=== PATIENT | female | born 1945 | race Caucasian/White ===

== ENCOUNTER 2021-09-06 15:36 | Emergency (ER) | payer MEDICARE ==
[2021-09-06] MEDS ORDERED: Acetaminophen 500 MG TAB ONE (16:32)
[2021-09-06 16:33] LABS: #Eosinphils 0.1 10x3/uL (0.0-0.5); #Monocytes 0.8 10x3/uL (0.0-1.1); #Neutrophils 3.6 10x3/uL (1.5-8.4); %Basophils 0.7 % (0.0-2.0); %Eosinophils 2.2 % (0.0-6.0); %Lymphocytes 21.9 % (18.0-47.0); %Monocytes 12.9 % (0.0-10.0); %Neutrophils 62.1 % (40.0-75.0); Hemoglobin 12.8 g/dL (12.0-15.5); Mean Corpuscular HGB CONC 33.2 g/dL (32.0-36.0); Mean Corpuscular Hemoglobin 31.1 pg (27.0-33.0); Mean Corpuscular Volume 93.7 fl (81.6-98.3); Mean Platelet Volume 10.8 fl (7.4-10.4); Platelet Count 217 10x3/uL (150-450); RBC Distribution Width 12.5 % (11.5-14.5); Red Blood Cell (RBC) Count 4.12 10x6/uL (3.90-5.03); White Blood Cell (WBC) Count 5.8 10x3/uL (3.5-10.5)
[2021-09-06 16:48] LABS: ALT (SGPT) 26 U/L (8-55); AST (SGOT) 31 U/L (5-34); Albumin 4.3 g/dL (3.4-4.8); Alkaline Phosphatase 38 U/L (40-110); Anion Gap 15 mmol/L (10-20); BUN (Urea Nitrogen) 21 mg/dL (9.8-20.1); Bilirubin, Total 0.6 mg/dL (0.2-1.2); Calc. Creatinine Clearance 0 mL/min (70-130); Calcium 9.4 mg/dL (7.8-10.44); Carbon Dioxide 30 mmol/L (23-31); Chloride 97 mmol/L (98-107); Globulin 3.3 g/dL (2.4-3.5); Glucose 99 mg/dL (83-110); Potassium 3.6 mmol/L (3.5-5.1); Protein, Total 7.6 g/dL (5.8-8.1); Sodium 138 mmol/L (136-145)
== END 2021-09-06 17:35 | disposition home or self-care (01) ==
LOC: CSHERS 15:36
DX: R07.9 Chest pain, unspecified (principal); I51.7 Cardiomegaly; R79.1 Abnormal coagulation profile; I10 Essential (primary) hypertension; J43.9 Emphysema, unspecified
CPT/HCPCS: 71045; 80053; 84484; 85025; 85379; 93005

== ENCOUNTER 2022-03-29 16:12 | Outpatient (CLI) | payer MEDICARE ==
[~2022-03-29 16:12] MED LIST: Iopamidol 300 61% 100 ML VIAL FS ONE
[2022-03-29 16:48] LABS: Estimated GFR-MDRD - POC Greater than 90
== END 2022-03-29 16:13 | disposition home or self-care (01) ==
LOC: CSHCT 16:12
PROVIDERS: ATTEND Nurse Practitioner Family
DX: I26.99 Other pulmonary embolism without acute cor pulmonale (principal); R06.02 Shortness of breath; J43.2 Centrilobular emphysema
CPT/HCPCS: 71275